=== PATIENT | male | born 1955 | race Caucasian/White ===

== ENCOUNTER 2017-09-19 17:47 | Inpatient (IN) | payer MEDICAID ==
[~2017-09-19] VITALS: Ht 175.3 cm; Wt 100.0 kg
[2017-09-19] VITALS (10 sets, daily range): BP systolic 133–156; BP diastolic 76–87; PULSE 74–96; RESP 17–20; TEMP 97.8–98; O2SAT 95–100
[2017-09-19] MEDS ORDERED: IOHEXOL 350 MG/ML 10 ML VIAL (for RAD DIAG) IVCONTRAST ONE (17:48)
[2017-09-19 18:14] LABS: AUTOMATED NEUTROPHIL # 3.5 TH/MM3 (1.8-7.7); BASOPHIL # 0.1 TH/MM3 (0-0.2); EOSINOPHIL # 0.3 TH/MM3 (0-0.4); EOSINOPHIL % 2.7 % (0.0-4.0); HEMATOCRIT 47.3 % (39.0-51.0); HEMOGLOBIN 17.1 GM/DL (13.0-17.0); LYMPH % 51.8 % (9.0-44.0); LYMPHOCYTE # 5.1 TH/MM3 (1.0-4.8); MEAN CELL VOLUME 95.8 FL (80.0-100.0); MEAN CORPUSCULAR HEMOGLOBIN 34.5 PG (27.0-34.0); MEAN PLATELET VOLUME 8.1 FL (7.0-11.0); MONO % 9.6 % (0.0-8.0); NEUT % 34.9 % (16.0-70.0); PLATELET COUNT 141 TH/MM3 (150-450); RED BLOOD COUNT 4.94 MIL/MM3 (4.50-5.90); RED CELL DISTRIBUTION WIDTH 13.5 % (11.6-17.2); WHITE BLOOD COUNT 9.9 TH/MM3 (4.0-11.0)
[2017-09-19] MEDS ORDERED: CEFAZOLIN INJ 2,000 MG in SODIUM CHLORIDE 0.9% INJ 100 ML IV ONE (18:15)
[2017-09-19] MEDS ORDERED: ONDANSETRON HCL 4 MG/2 ML VIAL IV PUSH ONE (18:15)
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
[2017-09-19 18:18] LABS: INTERNATIONAL NORMALIZED RATIO 1.1 RATIO; PROTHROMBIN TIME - PATIENT 10.7 SEC (9.8-11.6)
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
[2017-09-19] MEDS ORDERED: SODIUM CHLOR 0.9% 1000 ML INJ 1,000 ML IV ONE (18:30)
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
[2017-09-19] MEDS ORDERED: ceFAZolin 2 GM PREMIX 50 ML ONE (18:46)
[2017-09-19] MEDS ORDERED: DIPHTH/TETANUS/ACEL PERTUSSIS (BOOSTER) 0.5 ML VIAL/PFS IM ONE ×2 (18:46→18:55)
[2017-09-19] MEDS ORDERED: MORPHINE SULFATE 4 MG/ML INJ IV PUSH ONE (19:45)
[2017-09-19] MEDS ORDERED: Post-op Orders (for Pharmacy) XX ONE (20:00)
[2017-09-19] MEDS ORDERED: SODIUM CHLORIDE 0.9% FLUSH 10 ML FLUSH IV FLUSH PRN (20:00)
[2017-09-19] MEDS ORDERED: ONDANSETRON HCL 4 MG/2 ML VIAL IV PUSH PRN (20:00)
[2017-09-19] MEDS ORDERED: NALOXONE HCL 0.4 MG/ML AMP IV PUSH PRN (20:00)
[2017-09-19] MEDS ORDERED: MORPHINE SULFATE 2 MG/ML SYRINGE IV PUSH PRN (20:00)
[2017-09-19] MEDS: SODIUM CHLORIDE 0.9% FLUSH 10 ML FLUSH IV FLUSH SCH (20:15)
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
[2017-09-19] MEDS ORDERED: LIDOCAINE HCL 1% 30 ML VIAL INFIL ONE (20:45)
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
[2017-09-19] MEDS ORDERED: LIDOCAINE HCL 2% 50 ML VIAL ONE (21:06)
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
[2017-09-19] MEDS ORDERED: METOPROLOL TARTRATE 25 MG TAB PO PRN (23:30)
[2017-09-19] MEDS ORDERED: SODIUM CHLORID 0.9% 500 ML IV PRN (23:30)
[2017-09-19] MEDS ORDERED: LACTATED RINGER'S 1000 ML IV PRN (23:30)
[2017-09-19] MEDS ORDERED: POVIDONE IODINE 5% (ANTISEPSIS KIT) 4 APPLICATIONS EACH NARE PRN (23:30)
[2017-09-19] MEDS ORDERED: CHLORHEXIDINE GLUCONATE 2 % 1 PACK (2 CLOTHS) TOPICAL PRN (23:30)
[2017-09-19] MEDS: FAMOTIDINE 20 MG TAB PO SCH (23:46)
[2017-09-19] MEDS: METHOCARBAMOL 500 MG TAB PO SCH (23:46)
[2017-09-19] MEDS: ACETAMINOPHEN/HYDROcodone 325 MG/5 MG TAB PO PRN (23:47)
[2017-09-19] MEDS: SODIUM CHLOR 0.9% 1000 ML INJ 1,000 ML IV SCH ×2 (23:47→23:52)
[2017-09-20] VITALS (7 sets, daily range): BP systolic 152–171; BP diastolic 85–96; PULSE 62–78; RESP 16–18; TEMP 98.1–98.6; O2SAT 92–93
[2017-09-20] MEDS: METHOCARBAMOL 500 MG TAB PO SCH ×3 (05:04→20:09)
[2017-09-20] MEDS: ACETAMINOPHEN/HYDROcodone 325 MG/5 MG TAB PO PRN (05:04)
[2017-09-20 06:37] LABS: AUTOMATED NEUTROPHIL # 6.5 TH/MM3 (1.8-7.7); BASOPHIL # 0.1 TH/MM3 (0-0.2); BASOPHIL % 0.8 % (0.0-2.0); EOSINOPHIL # 0.1 TH/MM3 (0-0.4); EOSINOPHIL % 0.6 % (0.0-4.0); HEMATOCRIT 43.3 % (39.0-51.0); HEMOGLOBIN 15.3 GM/DL (13.0-17.0); LYMPH % 16.3 % (9.0-44.0); LYMPHOCYTE # 1.5 TH/MM3 (1.0-4.8); MEAN CELL VOLUME 95.5 FL (80.0-100.0); MEAN CORPUSCULAR HEMOGLOBIN 33.7 PG (27.0-34.0); MEAN CORPUSCULAR HGB CONC 35.3 % (32.0-36.0); MEAN PLATELET VOLUME 8.7 FL (7.0-11.0); MONO % 10.6 % (0.0-8.0); NEUT % 71.7 % (16.0-70.0); PLATELET COUNT 114 TH/MM3 (150-450); RED BLOOD COUNT 4.54 MIL/MM3 (4.50-5.90); RED CELL DISTRIBUTION WIDTH 13.5 % (11.6-17.2); WHITE BLOOD COUNT 9.1 TH/MM3 (4.0-11.0)
[2017-09-20] MEDS ORDERED: HALOPERIDOL LACTATE 5 MG/ML AMP IV PUSH PRN (06:45)
[2017-09-20] MEDS ORDERED: LACTULOSE SYRUP 20 GM/30 ML CUP PO PRN (06:45)
[2017-09-20] MEDS: ACETAMINOPHEN 1000 MG/100 ML 100 ML IV SCH ×3 (06:55→18:30)
[2017-09-20 07:01] LABS: BICARBONATE 21.2 MEQ/L (21.0-32.0); CALCIUM 7.7 MG/DL (8.5-10.1); CREATININE 0.63 MG/DL (0.60-1.30)
[2017-09-20] MEDS: RESP: ALBUTEROL 2.5 MG/IPRATROPIUM 0.5 MG NEB (SCH) NEB ×4 (08:55→21:26)
[2017-09-20] MEDS: POLYETHYLENE GLYCOL 17 GM PKG PO SCH (09:00)
[2017-09-20] MEDS: MULTIVITAMIN INJ 10 ML, THIAMINE INJ 100 MG, FOLIC ACID INJ 1 MG in SODIUM CHLORID 0.9%... IV SCH (10:16)
[2017-09-20] MEDS: SODIUM CHLORIDE 0.9% FLUSH 10 ML FLUSH IV FLUSH SCH ×2 (10:16→20:09)
[2017-09-20] MEDS: DOCUSATE SODIUM 50 MG/SENNA 8.6 MG TAB PO SCH ×2 (10:17→20:09)
[2017-09-20] MEDS: FAMOTIDINE 20 MG TAB PO SCH ×2 (10:17→20:09)
[2017-09-20] MEDS: LIDOCAINE HCL 5% PATCH T-DERMAL SCH (10:19)
--- NOTE | 2017-09-20 12:18 | EKG ---
Date Performed: 09/20/2017 Time Performed: 06:06:35 PTAGE: 89 years EKG: Sinus rhythm NORMAL ECG NO PREVIOUS TRACING DOCTOR: Good Manning Interpretating Date/Time 09/20/2017 12:14:57
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
[2017-09-20] MEDS: MORPHINE SULFATE 4 MG/ML INJ IV PUSH PRN ×2 (17:03→21:36)
[2017-09-21] VITALS (10 sets, daily range): BP systolic 141–174; BP diastolic 82–95; PULSE 64–86; RESP 16–19; TEMP 97.9–98.7; O2SAT 91–93
[2017-09-21] MEDS: ACETAMINOPHEN 1000 MG/100 ML 100 ML IV SCH (00:14)
[2017-09-21] MEDS: MORPHINE SULFATE 4 MG/ML INJ IV PUSH PRN ×2 (03:13→14:27)
[2017-09-21] MEDS: METHOCARBAMOL 500 MG TAB PO SCH (05:22)
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
[2017-09-21] MEDS: POLYETHYLENE GLYCOL 17 GM PKG PO SCH (09:00)
[2017-09-21] MEDS: RESP: ALBUTEROL 2.5 MG/IPRATROPIUM 0.5 MG NEB (SCH) NEB ×4 (09:06→20:07)
[2017-09-21] MEDS: LIDOCAINE HCL 5% PATCH T-DERMAL SCH (10:46)
[2017-09-21] MEDS: DOCUSATE SODIUM 50 MG/SENNA 8.6 MG TAB PO SCH ×2 (10:46→20:45)
[2017-09-21] MEDS: MULTIVITAMIN INJ 10 ML, THIAMINE INJ 100 MG, FOLIC ACID INJ 1 MG in SODIUM CHLORID 0.9%... IV SCH (10:46)
[2017-09-21] MEDS: TIOTROPIUM BROMIDE 18 MCG INH INH SCH (10:46)
[2017-09-21] MEDS: FAMOTIDINE 20 MG TAB PO SCH ×2 (10:47→20:45)
[2017-09-21] MEDS: SODIUM CHLORIDE 0.9% FLUSH 10 ML FLUSH IV FLUSH SCH ×2 (10:47→20:45)
[2017-09-21] MEDS: IBUPROFEN 800 MG TAB PO SCH ×3 (11:53→23:33)
[2017-09-21] MEDS: DIAZEPAM 2 MG TAB PO SCH ×2 (11:53→20:45)
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
[2017-09-21] MEDS: ENOXAPARIN SODIUM 40 MG/0.4 ML SYRINGE SQ SCH (14:24)
[2017-09-21] MEDS: LISINOPRIL 20 MG TAB PO SCH ×2 (14:24→20:45)
--- NOTE | 2017-09-21 16:58 | PD.POD ---
Subjective Pain score: 6 Remarks Mouth, ribs and right foot hurts Past Med/Surg/Social History Social History Smoking Status: Current Every Day Smoker Objective Vital Signs Vital Signs Date Time Temp Pulse Resp B/P (MAP) Pulse Ox O2 Delivery O2 Flow Rate FiO2 09/21/17 15:56 98.3 82 18 161/93 (115) 93 09/21/17 12:00 92 09/21/17 11:52 98.7 73 18 167/89 (115) 93 09/21/17 09:30 92 09/21/17 08:00 98.4 73 19 174/95 (121) 91 09/21/17 04:00 98.2 64 16 145/90 (108) 92 09/21/17 00:00 98.7 74 16 141/88 (105) 92 09/20/17 21:29 93 21 09/20/17 20:00 98.6 67 16 169/85 (113) 93 09/20/17 17:10 18 09/20/17 17:03 18 Coded Allergies: No Known Allergies (Verified Allergy, Unknown, 09/19/17) Medications and IVs Administered Medications Medications (Trade) Dose Ordered Sig/Johnson Route PRN Reason Start Time Stop Time Status Last Admin Dose Admin Sodium Chloride (NS Flush) 2 ml BID IV FLUSH 09/19/17 21:00 09/21/17 10:47 Famotidine (Pepcid) 20 mg BID PO 09/19/17 21:00 09/21/17 10:47 Multivitamins 10 ml/Thiamine HCl 100 mg/Folic Acid 1 mg/Sodium Chloride 511.2 ml @ 125 mls/hr DAILY IV 09/20/17 09:00 09/22/17 13:06 09/21/17 10:46 Morphine Sulfate (Morphine Inj) 4 mg Q3H PRN IV PUSH Breakthrough pain 09/20/17 06:45 09/21/17 14:27 Oxycodone HCl (Roxicodone) 10 mg Q4H PRN PO Pain 6-10 09/20/17 06:45 09/21/17 10:47 Lidocaine HCl (Lidoderm 5% Patch.12 Hr) 1 patch DAILY T-DERMAL 09/20/17 09:00 09/21/17 10:46 Senna/Docusate Sodium (Wanda-Colace) 1 tab BID PO 09/20/17 09:00 09/21/17 10:46 Albuterol/ Ipratropium (Duoneb Neb) 1 ampule Q4HR WHILE AWAKE NEB NEB 09/20/17 08:00 09/21/17 12:45 Tiotropium [place]itt (Spiriva Inh) 18 mcg DAILY INH 09/20/17 11:30 09/21/17 10:46 Diazepam (Valium) 2 mg Q8H PO 09/21/17 12:00 09/21/17 11:53 Ibuprofen (Motrin) 800 mg Q6HR PO 09/21/17 12:00 09/24/17 11:59 09/21/17 11:53 Lisinopril (Prinivil) 20 mg Q12HR PO 09/21/17 14:00 09/21/17 14:24 Enoxaparin Sodium (Lovenox Inj) 40 mg Q24H SQ 09/21/17 16:00 09/21/17 14:24 Other Results Last 72 hours Impressions Chest X-Ray 09/21/17 0600 Signed Impressions: Service Date/Time: Thursday, September 21, 2017 05:19 - CONCLUSION: Mild volume loss on the right with contusion or atelectasis in the medial right base Wilner Finch MD Lower Extremity CT 09/20/17 0000 Signed Impressions: Service Date/Time: Wednesday, September 20, 2017 16:10 - CONCLUSION: 1. Multiple fractures involving the second and third cuneiforms, proximal second metatarsal and distal third and fourth metatarsals. 2. Soft tissue swelling 3. Intact forefoot and hindfoot alignment. Wagner Sullivan MD Pelvis X-Ray 09/19/171750 Signed Impressions: Service Date/Time: Tuesday, September 19, 2017 17:48 - CONCLUSION: 1. No acute bony abnormality identified on plain film. Elgin Allison MD Maxillofacial CT 09/19/171750 Signed Impressions: Service Date/Time: Tuesday, September 19, 2017 18:03 - CONCLUSION: Anterior wall right maxillary sinus fracture. Natalio Alvarez MD Head CT 09/19/171750 Signed Impressions: Service Date/Time: Tuesday, September 19, 2017 18:03 - CONCLUSION: 1. No acute intracranial abnormalities. Right maxillary sinus fracture. Elgin Allison MD Chest X-Ray 09/19/171750 Signed Impressions: Service Date/Time: Tuesday, September 19, 2017 17:48 - CONCLUSION: No acute disease. Natalio Alvarez MD Chest CT 09/19/171750 Signed Impressions: Service Date/Time: Tuesday, September 19, 2017 18:18 - CONCLUSION: 1. Right- sided rib fractures. 2. Destructive bone lesion involving the spine and measuring mass effect and narrowing of the spinal canal at the T8 level. There may also be a T7 right transverse process lesion. The leading consideration would be metastatic disease of unknown primary. 3. Findings suggest possible cirrhosis. Natalio Alvarez MD Cervical Spine CT 09/19/171750 Signed Impressions: Service Date/Time: Tuesday, September 19, 2017 18:03 - CONCLUSION: Degenerative changes are noted without evidence for acute fracture or listhesis. Natalio Alvarez MD Abdomen/Pelvis CT 09/19/171750 Signed Impressions: Service Date/Time: Tuesday, September 19, 2017 18:18 - CONCLUSION: 1. Several lower right rib fractures without pneumothorax or significant lung contusion. Negative for acute traumatic injury within the abdomen or pelvis. Elgin Allison MD Foot X-Ray 09/19/17 0000 Signed Impressions: Service Date/Time: Tuesday, September 19, 2017 20:10 - CONCLUSION: Multiple fractures are seen as above. Natalio Alvarez MD Physical Exam General appearance: comfortable Nutritional status: overweight Orientation: alert and oriented x3 Details Right lower extremity with moderate swelling no fracture blisters noted, foot is warm, pulses palpable, pain upon palpating Lisfranc midtarsal joint, patient is capable of moving digits and ankle. Sensation intact to light touch in the pressure. No gross deformity noted Assessment & Plan A/P Right second metatarsal base fracture, cuneiform fracture, Lisfranc fracture/ dislocation, metatarsal fractures 2 3 4. Plan is for stressing the Lisfranc joint under general anesthesia tomorrow with plans for fixating unstable fragments likely starting with the Lisfranc joint and possible second metatarsal. The patient has a long history of smoking reviewed the need for smoking cessation and increased risk of wound healing problems nonunion and infection. We'll attempt a minimally invasive percutaneous approach to stabilize fractures. Reviewed case with trauma team clearance obtained. A long discussion took place with the patient regarding risks and benefits. If the fractures are not fixated there were likely be instability and a general progression to a post traumatic instability within the Lisfranc joint and midfoot. Surgery planned for tomorrow patient ordered nothing by mouth after midnight and consent signed. Gerardo Castillo DPM Sep 21, 2017 16:58
[2017-09-21] MEDS ORDERED: CEFAZOLIN INJ 2,000 MG in SODIUM CHLORIDE 0.9% INJ 100 ML IV SCH (17:00)
[2017-09-21] MEDS ORDERED: LACTATED RINGER'S 1000 ML IV PRN (21:00)
[2017-09-21] MEDS ORDERED: SODIUM CHLORID 0.9% 500 ML IV PRN (21:00)
[2017-09-21] MEDS ORDERED: POVIDONE IODINE 5% (ANTISEPSIS KIT) 4 APPLICATIONS EACH NARE PRN (21:00)
[2017-09-21] MEDS ORDERED: CHLORHEXIDINE GLUCONATE 2 % 1 PACK (2 CLOTHS) TOPICAL PRN (21:00)
[2017-09-21] MEDS ORDERED: METOPROLOL TARTRATE 25 MG TAB PO PRN (21:00)
[2017-09-22] VITALS (8 sets, daily range): BP systolic 136–170; BP diastolic 83–96; PULSE 85–97; RESP 16–18; TEMP 97.9–98.6; O2SAT 92–95
[2017-09-22 03:16] LABS: AUTOMATED NEUTROPHIL # 5.5 TH/MM3 (1.8-7.7); BASOPHIL % 0.5 % (0.0-2.0); EOSINOPHIL # 0.1 TH/MM3 (0-0.4); EOSINOPHIL % 1.8 % (0.0-4.0); HEMOGLOBIN 14.7 GM/DL (13.0-17.0); LYMPH % 15.9 % (9.0-44.0); LYMPHOCYTE # 1.2 TH/MM3 (1.0-4.8); MEAN CELL VOLUME 96.2 FL (80.0-100.0); MEAN CORPUSCULAR HEMOGLOBIN 33.8 PG (27.0-34.0); MEAN CORPUSCULAR HGB CONC 35.1 % (32.0-36.0); MEAN PLATELET VOLUME 8.3 FL (7.0-11.0); MONOCYTE # 0.5 TH/MM3 (0-0.9); NEUT % 74.8 % (16.0-70.0); PLATELET COUNT 83 TH/MM3 (150-450); RED BLOOD COUNT 4.36 MIL/MM3 (4.50-5.90); RED CELL DISTRIBUTION WIDTH 13.1 % (11.6-17.2); WHITE BLOOD COUNT 7.4 TH/MM3 (4.0-11.0)
[2017-09-22 03:28] LABS: BICARBONATE 26.8 MEQ/L (21.0-32.0); CALCIUM 8.1 MG/DL (8.5-10.1); CREATININE 0.69 MG/DL (0.60-1.30)
[2017-09-22] MEDS: DIAZEPAM 2 MG TAB PO SCH ×3 (05:26→20:35)
[2017-09-22] MEDS: IBUPROFEN 800 MG TAB PO SCH ×4 (05:26→23:05)
[2017-09-22] MEDS: LIDOCAINE HCL 5% PATCH T-DERMAL SCH (07:55)
[2017-09-22] MEDS: LISINOPRIL 20 MG TAB PO SCH ×2 (07:55→20:35)
[2017-09-22] MEDS: POLYETHYLENE GLYCOL 17 GM PKG PO SCH (07:56)
[2017-09-22] MEDS: MULTIVITAMIN INJ 10 ML, THIAMINE INJ 100 MG, FOLIC ACID INJ 1 MG in SODIUM CHLORID 0.9%... IV SCH (07:56)
[2017-09-22] MEDS: SODIUM CHLORIDE 0.9% FLUSH 10 ML FLUSH IV FLUSH SCH ×2 (07:56→20:34)
[2017-09-22] MEDS: FAMOTIDINE 20 MG TAB PO SCH ×2 (07:57→20:35)
[2017-09-22] MEDS: TIOTROPIUM BROMIDE 18 MCG INH INH SCH (08:01)
[2017-09-22] MEDS: DOCUSATE SODIUM 50 MG/SENNA 8.6 MG TAB PO SCH ×2 (08:07→20:35)
[2017-09-22] MEDS: RESP: ALBUTEROL 2.5 MG/IPRATROPIUM 0.5 MG NEB (SCH) NEB ×4 (08:29→19:53)
[2017-09-22] MEDS ORDERED: BUPIVACAINE HCL PF 0.5% 30 ML VIAL ONE ×2 (11:43→13:37)
[2017-09-22] MEDS ORDERED: PHENYLEPH/NS 1000 MCG/10 ML SYR IV ONE (12:00)
[2017-09-22] MEDS ORDERED: ceFAZolin INJ 1,000 MG VIAL IV ONE ×2 (12:00→16:22)
[2017-09-22] MEDS ORDERED: DEXAMETHASONE SOD PHOS 4 MG/ML VIAL IV ONE (12:00)
[2017-09-22] MEDS ORDERED: PROPOFOL 200 MG/20 ML AMP IV ONE (12:00)
[2017-09-22] MEDS ORDERED: ePHEDrine/NS 25 MG/5 ML SYRINGE IV ONE (12:00)
[2017-09-22] MEDS ORDERED: LIDOCAINE HCL 1% PF 5 ML SYRINGE OTHER ONE (12:00)
[2017-09-22] MEDS ORDERED: ONDANSETRON HCL 4 MG/2 ML VIAL IV ONE (12:00)
[2017-09-22] MEDS ORDERED: GADODIAMIDE PF 287 MG/ML 20 ML VIAL (for RAD MRI) IVCONTRAST ONE (12:32)
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
[2017-09-22] MEDS ORDERED: ACETAMINOPHEN 1000 MG/100 ML 100 ML IV ONE (13:36)
[2017-09-22] MEDS ORDERED: ceFAZolin INJ 1,000 MG VIAL ONE (13:36)
[2017-09-22] MEDS ORDERED: GENTAMICIN SULFATE 80 MG/2 ML VIAL ONE (13:37)
[2017-09-22] MEDS ORDERED: DO NOT ADM ANY ANTICOAGULANT DRUGS PRN (16:40)
--- NOTE | 2017-09-22 16:46 | HHI.PR ---
Immediate Post Op Note Procedure Date: Sep 22, 2017 Pre Op Diagnosis: Left Lisfranc fracture dislocation. Third metatarsal fracture. Midfoot fracture dislocation. Post Op Diagnosis: Same Surgeon: Gerardo Mckeon Machine Sole Leveler(s): scrub Procedure: Open reduction internal fixation third metatarsal. Open reduction internal fixation Lisfranc joint. Additional Information: Please see complete dictation Complications: None Specimen(s) removed: None Estimated blood loss: Less than 75 mL's Anesthesia: General, Local Drains: None Tourniquet time (min at mmHg) Approximate 75 minutes Patient to: Other Patient Condition: Good Implant/Devices: SEE IMPLANT LOG (if applicable) Date/Time of Procedure: SEE SURGICAL CARE RECORD Gerardo Mckeon DPM Sep 22, 2017 16:46
[2017-09-22] MEDS ORDERED: MIDAZOLAM HCL 2 MG/2 ML VIAL ONE (16:47)
[2017-09-22] MEDS ORDERED: *RESP: ALBUTEROL 2.5 MG/3 ML NEB (PRN) PERIprocedural Use ONLY NEB ONE (16:51)
--- NOTE | 2017-09-22 17:03 | RADRPT ---
EXAM DATE/TIME: 09/22/2017 14:45 [facility] COMPARISON: No previous studies available for comparison. INDICATIONS : ORIF right foot. MEDICAL HISTORY : Hypertension. Carcinoma renal. Hernia repair. SURGICAL HISTORY : Rt ankle surgery. Partial rt nephrectomy. ENCOUNTER: Subsequent ACUITY: 1 day PAIN SCORE: Non-responsive. LOCATION: Right foot. FINDINGS: And screw placement from the medial cuneiform to the base of the second metatarsal. There is any pain of the third metatarsal. There are pins across the third and fourth tarsometatarsal joints. CONCLUSION: Screw and pin fixation of Lisfranc joint and the third metatarsal. Near-anatomic alignment. No acute complication demonstrated. Wilner Conner MD on September 22, 2017 at 17:00 Board Certified Radiologist. This report was verified electronically.
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
[2017-09-23] VITALS (8 sets, daily range): BP systolic 134–160; BP diastolic 72–90; PULSE 67–109; RESP 17–18; TEMP 98.2–99.3; O2SAT 92–97
[2017-09-23 04:15] LABS: AUTOMATED NEUTROPHIL # 7.1 TH/MM3 (1.8-7.7); BASOPHIL % 0.1 % (0.0-2.0); HEMATOCRIT 40.2 % (39.0-51.0); LYMPH % 7.7 % (9.0-44.0); LYMPHOCYTE # 0.7 TH/MM3 (1.0-4.8); MEAN CELL VOLUME 96.9 FL (80.0-100.0); MEAN CORPUSCULAR HEMOGLOBIN 33.7 PG (27.0-34.0); MEAN CORPUSCULAR HGB CONC 34.8 % (32.0-36.0); MEAN PLATELET VOLUME 8.7 FL (7.0-11.0); MONO % 8.2 % (0.0-8.0); MONOCYTE # 0.7 TH/MM3 (0-0.9); PLATELET COUNT 90 TH/MM3 (150-450); RED BLOOD COUNT 4.14 MIL/MM3 (4.50-5.90); RED CELL DISTRIBUTION WIDTH 13.1 % (11.6-17.2); WHITE BLOOD COUNT 8.5 TH/MM3 (4.0-11.0)
[2017-09-23 04:34] LABS: BICARBONATE 26.7 MEQ/L (21.0-32.0); CREATININE 0.67 MG/DL (0.60-1.30)
[2017-09-23] MEDS: DIAZEPAM 2 MG TAB PO SCH ×3 (04:41→22:21)
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
[2017-09-23] MEDS: RESP: ALBUTEROL 2.5 MG/IPRATROPIUM 0.5 MG NEB (SCH) NEB ×4 (08:42→19:33)
[2017-09-23] MEDS: FAMOTIDINE 20 MG TAB PO SCH ×2 (09:00→22:22)
[2017-09-23] MEDS: SODIUM CHLORIDE 0.9% FLUSH 10 ML FLUSH IV FLUSH SCH ×2 (09:00→21:00)
[2017-09-23] MEDS: LISINOPRIL 20 MG TAB PO SCH ×2 (09:00→22:21)
[2017-09-23] MEDS: POLYETHYLENE GLYCOL 17 GM PKG PO SCH (09:00)
[2017-09-23] MEDS: DOCUSATE SODIUM 50 MG/SENNA 8.6 MG TAB PO SCH ×2 (09:00→22:22)
[2017-09-23] MEDS: TIOTROPIUM BROMIDE 18 MCG INH INH SCH (09:00)
--- NOTE | 2017-09-23 09:21 | PD.POD ---
Subjective Pain score: 3 Remarks Minimal right foot pain, no events overnight, going for biopsy today Past Med/Surg/Social History Social History Smoking Status: Current Every Day Smoker Objective Vital Signs Vital Signs Date Time Temp Pulse Resp B/P (MAP) Pulse Ox O2 Delivery O2 Flow Rate FiO2 09/23/17 08:00 98.6 67 17 158/86 (110) 96 09/23/17 04:45 98.2 72 18 160/89 (112) 96 09/22/17 23:31 98.6 89 18 161/96 (117) 94 09/22/17 19:53 95 21 09/22/17 19:34 97.9 97 18 154/93 (113) 94 09/22/17 18:00 98.0 85 18 163/83 (109) 94 09/22/17 17:15 91 14 151/77 (101) 94 Nasal Cannula 2 09/22/17 17:00 86 18 160/78 (105) 98 Nasal Cannula 2 09/22/17 16:45 91 20 143/84 (103) 96 Nasal Cannula 2 09/22/17 16:38 98.8 93 20 133/78 (96) 96 Nasal Cannula 2 09/22/17 10:45 97.9 85 16 170/96 (120) 94 Coded Allergies: No Known Allergies (Verified Allergy, Unknown, 09/19/17) Medications and IVs Administered Medications Medications (Trade) Dose Ordered Sig/Johnson Route PRN Reason Start Time Stop Time Status Last Admin Dose Admin Sodium Chloride (NS Flush) 2 ml BID IV FLUSH 09/19/17 21:00 09/22/17 20:34 Famotidine (Pepcid) 20 mg BID PO 09/19/17 21:00 09/22/17 20:35 Morphine Sulfate (Morphine Inj) 4 mg Q3H PRN IV PUSH Breakthrough pain 09/20/17 06:45 09/21/17 14:27 Oxycodone HCl (Roxicodone) 10 mg Q4H PRN PO Pain 6-10 09/20/17 06:45 09/23/17 06:00 Lidocaine HCl (Lidoderm 5% Patch.12 Hr) 1 patch DAILY T-DERMAL 09/20/17 09:00 09/22/17 07:55 Senna/Docusate Sodium (Wanda-Colace) 1 tab BID PO 09/20/17 09:00 09/21/17 20:45 Albuterol/ Ipratropium (Duoneb Neb) 1 ampule Q4HR WHILE AWAKE NEB NEB 09/20/17 08:00 09/23/17 08:42 Tiotropium [place] (Spiriva Inh) 18 mcg DAILY INH 09/20/17 11:30 09/22/17 08:01 Diazepam (Valium) 2 mg Q8H PO 09/21/17 12:00 09/23/17 04:41 Ibuprofen (Motrin) 800 mg Q6HR PO 09/21/17 12:00 09/24/17 11:59 Future Hold 09/22/17 23:05 Lisinopril (Prinivil) 20 mg Q12HR PO 09/21/17 14:00 09/22/17 20:35 Enoxaparin Sodium (Lovenox Inj) 40 mg Q24H SQ 09/21/17 16:00 Future hold 09/21/17 14:24 Other Results Last 72 hours Impressions Chest X-Ray 09/23/17 0600 Signed Impressions: Service Date/Time: Saturday, September 23, 2017 06:04 - CONCLUSION: Slight worsening in aeration Wilner Finch MD Thoracic Spine MRI 09/22/17 0000 Signed Impressions: Service Date/Time: Friday, September 22, 2017 12:03 - CONCLUSION: 1. 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 Associated right foraminal stenosis at T8/T9. 2. No acute fracture or subluxation demonstrated of the thoracic spine. 3. Bilateral pleural effusions have developed since the prior CT, etiology uncertain. Wilner Conner MD Foot X-Ray 09/22/17 0000 Signed Impressions: Service Date/Time: Friday, September 22, 2017 14:45 - CONCLUSION: Screw and pin fixation of Lisfranc joint and the third metatarsal. Near-anatomic alignment. No acute complication demonstrated. Wilner Conner MD Chest X-Ray 09/21/17 0600 Signed Impressions: Service Date/Time: Thursday, September 21, 2017 05:19 - CONCLUSION: Mild volume loss on the right with contusion or atelectasis in the medial right base Wilner Finch MD Physical Exam Remarks Verbal appropriate mild pain with coughing Right lower extremity is examined splint intact patient able to move toes, toes appear warm, no strikethrough on bandage. Calf nonpainful bilateral left lower extremity with no issues Assessment & Plan A/P 1. Right Lisfranc fracture dislocation. 2. Displaced third metatarsal. 3. Mid foot fracture dislocation second and third cuneiforms. 4. Fourth metatarsal fracture. Postop day 1 1. Open reduction and internal fixation Lisfranc joint. 2. Open reduction and internal fixation third metatarsal. 3. Open reduction and internal fixation cuneiform 2 and 3 with K-wire fixation. 4. Closed reduction fourth metatarsal. Right lower extremity is doing well, anticipate bandage changed before discharge. Continue physical therapy nonweightbearing right foot. Okay to resume Lovenox once cleared per neuro and trauma team. Gerardo Castillo DPM Sep 23, 2017 09:20
[2017-09-23] MEDS: LIDOCAINE HCL 5% PATCH T-DERMAL SCH (10:53)
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
[2017-09-23] MEDS ORDERED: fentaNYL CITRATE 250 MCG/5 ML AMP ONE (13:55)
[2017-09-23] MEDS ORDERED: MIDAZOLAM HCL 5 MG/5 ML VIAL ONE (13:55)
[2017-09-23] MEDS ORDERED: LIDOCAINE 1%/EPINEPHrine 1:100,000 SOLN 50 ML VIAL ONE (14:07)
[2017-09-23] MEDS ORDERED: THROMBIN (TOPICAL) 5,000 UNIT VIAL ONE (14:49)
--- NOTE | 2017-09-23 15:05 | PD.RAD ---
Post CT Procedure Prog Note Pre Procedure Diagnosis: (1) Mass of thoracic vertebra Post Procedure Diagnosis: (1) Mass of thoracic vertebra Procedure Date: Sep 23, 2017 Supervising Radiologist: Yousif Crawford Anesthesia: Local, Analgesia, Conscious Sedation Plan of Activity Patient to Unit: ROPU Patient Condition: Good See PACS Report for procedural detail/treatment Biopsy Imaging Guidance: CT Side: Right Biopsy Procedure: Spine (T8) Specimen: Core Biopsy (18 gauge) Yousif Crawford MD Sep 23, 2017 15:05
[2017-09-23] MEDS ORDERED: LIDOCAINE 1%/EPINEPHrine 1:100,000 SOLN 30 ML VIAL OTHER ONE (15:31)
--- NOTE | 2017-09-23 15:39 | HHI.NSPN ---
(Jh Juárez) History Chief Complaint: Right foot pain (Jh Juárez) Interval History 09/22: The patient was evaluated by Neurosurgery for the finding of a thoracic spine lesion upon trauma evaluation on . The patient had an MRI of the thoracic spine completed in the afternoon which demonstrated multifocal metastatic disease of the spine. There is also associated right foraminal stenosis at T8-9. There are no acute fractures or subluxation. An incidental finding of bilateral pleural effusions was noted to have developed since his CT chest on . 09/23: The patient had a right T8 core biopsy by Interventional Radiology completed this afternoon prior to being seen. He was seen upon his return to his room on a med/surg floor. He is awake and alert. He is sitting up on the stretcher even though he is suppose to be laying flat after the biopsy. He complains of difficulty breathing when laying flat due to his rib fractures. He also has pain to the right foot due to fractures. He denies any headache or dizziness. He has no pain, except for the right foot, numbness, tingling or weakness to the extremities. When evaluated there are no sensorimotor deficits noted. The patient's bed is placed in reverse Trendelenburg and he is able to breathe without any difficulty. (Jh Juárez) Exam Results 09/21/17 09/21/17 09/22/17 09/22/17 09/23/17 09/23/17 06:00 18:00 06:00 18:00 06:00 18:00 Intake Total 1420 ml 400 ml 0 ml 900 ml 840 ml Output Total 750 ml 600 ml 82 ml Balance 670 ml -200 ml 0 ml 818 ml 840 ml Intake Oral 1320 ml 400 ml 0 ml 0 ml 840 ml IV Total 100 ml 900 ml Output Urine Total 750 ml 600 ml 4 ml Stool Total 3 ml Estimated Blood Loss 75 ml # Voids 4 3 5 # Bowel Movements 0 1 0 Vital Signs Date Time Temp Pulse Resp B/P (MAP) Pulse Ox O2 Delivery O2 Flow Rate FiO2 09/23/17 15:01 98.3 90 18 137/80 (99) 92 09/23/17 11:52 20 09/23/17 11:48 98.2 72 17 149/90 (109) 97 09/23/17 08:00 98.6 67 17 158/86 (110) 96 09/23/17 04:45 98.2 72 18 160/89 (112) 96 09/22/17 23:31 98.6 89 18 161/96 (117) 94 09/22/17 19:53 95 21 09/22/17 19:34 97.9 97 18 154/93 (113) 94 09/22/17 18:00 98.0 85 18 163/83 (109) 94 09/22/17 17:15 91 14 151/77 (101) 94 Nasal Cannula 2 09/22/17 17:00 86 18 160/78 (105) 98 Nasal Cannula 2 09/22/17 16:45 91 20 143/84 (103) 96 Nasal Cannula 2 09/22/17 16:38 98.8 93 20 133/78 (96) 96 Nasal Cannula 2 09/22/17 10:45 97.9 85 16 170/96 (120) 94 09/22/17 08:29 92 21 09/22/17 07:48 98.1 91 17 152/96 (114) 93 09/22/17 05:20 98.2 89 18 136/89 (105) 93 09/21/17 23:34 98.1 86 18 147/82 (103) 93 09/21/17 20:15 93 09/21/17 19:40 97.9 81 18 162/89 (113) 93 09/21/17 15:56 98.3 82 18 161/93 (115) 93 09/21/17 12:00 92 09/21/17 11:52 98.7 73 18 167/89 (115) 93 09/21/17 09:30 92 09/21/17 08:00 98.4 73 19 174/95 (121) 91 09/21/17 04:00 98.2 64 16 145/90 (108) 92 09/21/17 00:00 98.7 74 16 141/88 (105) 92 09/20/17 21:29 93 21 09/20/17 20:00 98.6 67 16 169/85 (113) 93 09/20/17 17:10 18 09/20/17 16:00 98.1 78 16 170/89 (116) 92 (Jh Juárez) Physical Examination GENERAL: Awake & alert, sitting up on the stretcher. Affect normal. Readily interacts. No apparent distress. SKIN: Warm & dry. Abrasions noted. Midline thoracic spine biopsy insertion site w/dry & intact dressing. HEENT: Normocephalic, atraumatic. MUSCULOSKELETAL: GILBERT spontaneously & purposefully w/o difficulty. Extremities NTTP but unable to assess right foot or ankle due to splint. Thoracolumbar spine NTTP. NEUROLOGICAL: AAOx3. Speech clear & appropriate. Follows commands w/o difficulty. The right foot and ankle are not able to be assess due to the presence of a splint. He is able to wiggle the toes and says they feel numb to touch. Sensation intact to light touch to the extremities except as noted above. Motor strength is 5/5 to all major flexion & extension muscle groups of the extremities, to include the wrist flexors & extensors and the hand intrinsics & extrinsics, except as noted above. (Jh Juárez) Lab, Micro, Other Results Recent Impressions Chest X-Ray 09/23/17 06 Signed Impressions: Service Date/Time: Saturday, September 23, 2017 06:04 - CONCLUSION: Slight worsening in aeration Wilner Finch MD Thoracic Spine MRI 09/22/17 0000 Signed Impressions: Service Date/Time: Friday, September 22, 2017 12:03 - CONCLUSION: 1. 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 Associated right foraminal stenosis at T8/T9. 2. No acute fracture or subluxation demonstrated of the thoracic spine. 3. Bilateral pleural effusions have developed since the prior CT, etiology uncertain. Wilner Conner MD Foot X-Ray 09/22/17 0000 Signed Impressions: Service Date/Time: Friday, September 22, 2017 14:45 - CONCLUSION: Screw and pin fixation of Lisfranc joint and the third metatarsal. Near-anatomic alignment. No acute complication demonstrated. Wilner Conner MD Chest X-Ray 09/21/17 0600 Signed Impressions: Service Date/Time: Thursday, September 21, 2017 05:19 - CONCLUSION: Mild volume loss on the right with contusion or atelectasis in the medial right base Wilner Finch MD Laboratory Tests Test 09/22/17 02:57 09/23/17 03:42 White Blood Count 7.4 TH/MM3 8.5 TH/MM3 Red Blood Count 4.36 MIL/MM3 4.14 MIL/MM3 Hemoglobin 14.7 GM/DL 14.0 GM/DL Hematocrit 42.0 % 40.2 % Mean Corpuscular Volume 96.2 FL 96.9 FL Mean Corpuscular Hemoglobin 33.8 PG 33.7 PG Mean Corpuscular Hemoglobin Concent 35.1 % 34.8 % Red Cell Distribution Width 13.1 % 13.1 % Platelet Count 83 TH/MM3 90 TH/MM3 Mean Platelet Volume 8.3 FL 8.7 FL Neutrophils (%) (Auto) 74.8 % 84.0 % Lymphocytes (%) (Auto) 15.9 % 7.7 % Monocytes (%) (Auto) 7.0 % 8.2 % Eosinophils (%) (Auto) 1.8 % 0.0 % Basophils (%) (Auto) 0.5 % 0.1 % Neutrophils # (Auto) 5.5 TH/MM3 7.1 TH/MM3 Lymphocytes # (Auto) 1.2 TH/MM3 0.7 TH/MM3 Monocytes # (Auto) 0.5 TH/MM3 0.7 TH/MM3 Eosinophils # (Auto) 0.1 TH/MM3 0.0 TH/MM3 Basophils # (Auto) 0.0 TH/MM3 0.0 TH/MM3 CBC Comment AUTO DIFF AUTO DIFF Differential Comment AUTO DIFF CONFIRMED AUTO DIFF CONFIRMED Platelet Estimate LOW LOW Platelet Morphology Comment NORMAL NORMAL Blood Urea Nitrogen 6 MG/DL 9 MG/DL Creatinine 0.69 MG/DL 0.67 MG/DL Random Glucose 111 MG/DL 117 MG/DL Calcium Level 8.1 MG/DL 8.0 MG/DL Sodium Level 136 MEQ/L 136 MEQ/L Potassium Level 3.8 MEQ/L 3.9 MEQ/L Chloride Level 102 MEQ/L 104 MEQ/L Carbon Dioxide Level 26.8 MEQ/L 26.7 MEQ/L Anion Gap 7 MEQ/L 5 MEQ/L Estimat Glomerular Filtration Rate 117 ML/MIN 121 ML/MIN (Jh Juárez) Medical Decision Making Impression and Plan Impression: T8 lesion c/w metastatic neoplasm Multifocal metastatic disease of the thoracic spine Right foraminal stenosis at T8-9 The patient is doing well. The only sensorimotor deficit noted is numbness to the right toes which are splinted secondary to fractures. SBP intermittently elevated. Reviewed labs for today. Improvement in thrombocytopenia. MRI thoracic spine demonstrated multifocal metastatic disease of the spine. There is also associated right foraminal stenosis at T8-9. There are no acute fractures or subluxation. An incidental finding of bilateral pleural effusions was noted to have developed since his CT chest on . Plan: Plan of care discussed with patient. Plan of care discussed with Trauma. Primary management per Trauma. Neuro checks. Medical Oncology consult. Radiation Oncology consult. (Jh Juárez) Attending Statement The exam, history, and the medical decision-making described in the above note were completed with the assistance of the mid-level provider. I reviewed and agree with the findings presented. I attest that I had a [id number] encounter with the patient on the same day, and personally performed and documented my assessment and findings in the medical record. Patient's examination today stable without significant lower extremity neurologic deficit. Ambulating Thoracic spine biopsy performed today-results pending (Robb Randhawa MD) Jh Juárez Sep 23, 2017 15:39 Robb Randhawa MD Sep 23, 2017 22:18
--- NOTE | 2017-09-23 17:19 | RADRPT ---
EXAM DATE/TIME: 09/23/2017 14:28 [facility] COMPARISON: No previous studies available for comparison. INDICATIONS : T-spine lesion t-8 SEDATION TIME: 30 minutes BIOPSY SITE: T-8 MEDICATION(S): 1.) 5 mg midazolam (Versed) IV 2.) 250 mcg fentanyl (Sublimaze) IV DEVICE(S): 1.) 18 gauge Bard joryon MEDICAL HISTORY : Hypertension. CA Renal SURGICAL HISTORY : Nephrectomy, right. Hernia repair orthopedic ENCOUNTER: Initial ACUITY: 1 day PAIN SCORE: 6/10 LOCATION: T-8 bone A total of one core specimen(s) were obtained and sent to the laboratory for pathologic evaluation. PROCEDURE: 1. CT guided T-8 biopsy. Prior to the procedure informed consent was obtained. Any appropriate prior imaging studies were rev iewed. Using automated exposure control and adjustment of the mA and/or kV according to patient size, radiat ion dose was kept as low as reasonably achievable to obtain optimal diagnostic quality images. DICOM format image data is available electronically for review and comparison. The site was prepped in a sterile fashion. Full sterile technique was used, including cap, mask, mingo rile gloves and gown and a large sterile sheet. Hand hygiene and 2% chlorhexidine and/or betadine/al cohol prep was utilized per protocol for cutaneous antisepsis. The skin and subcutaneous tissues wer e infiltrated with local anesthetic solution. With CT guidance the previously identified target was localized using a coaxial biopsy.. Biopsy was p erformed using the prescribed needle as above. Adequate hemostasis was obtained with a Gelfoam and t hrombin slurry as there was some bleeding from the carrier needle postbiopsy. Pressure dressing place d over the access site. Follow-up CT scan reveals no hemorrhage. The patient tolerated the procedure well and there were no complications. The patient was returned to the Radiology Outpatient Unit in stable condition. CONCLUSION: Uncomplicated CT guided biopsy. Yousif Crawford MD on September 23, 2017 at 17:15 Board Certified Radiologist. This report was verified electronically.
[2017-09-23] MEDS: ENOXAPARIN SODIUM 40 MG/0.4 ML SYRINGE SQ SCH (17:31)
[2017-09-24] MEDS: DIAZEPAM 2 MG TAB PO SCH ×3 (03:25→20:07)
[2017-09-24 04:00] VITALS: BP 162/95; PULSE 80; RESP 18; TEMP 99.7; O2SAT 95
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
[2017-09-24 08:00] VITALS: BP 155/87; PULSE 72; RESP 18; TEMP 98.6; O2SAT 96
[2017-09-24] MEDS: SODIUM CHLORIDE 0.9% FLUSH 10 ML FLUSH IV FLUSH SCH ×2 (08:54→20:07)
[2017-09-24] MEDS: FAMOTIDINE 20 MG TAB PO SCH ×2 (08:55→20:07)
[2017-09-24] MEDS: LISINOPRIL 20 MG TAB PO SCH ×2 (08:55→20:07)
[2017-09-24] MEDS: DOCUSATE SODIUM 50 MG/SENNA 8.6 MG TAB PO SCH ×2 (08:55→20:07)
[2017-09-24] MEDS: POLYETHYLENE GLYCOL 17 GM PKG PO SCH (08:55)
[2017-09-24] MEDS: LIDOCAINE HCL 5% PATCH T-DERMAL SCH (08:57)
[2017-09-24] MEDS: TIOTROPIUM BROMIDE 18 MCG INH INH SCH (08:59)
[2017-09-24 10:24] LABS: % SATURATION IRON PROFILE 14.7 % (20-50); IRON (FE) 29 MCG/DL (65-175); TOTAL IRON BINDING CAPACITY 197 MCG/DL (250-450)
[2017-09-24 10:49] LABS: FERRITIN 709 NG/ML (26-388); FOLATE 12.5 NG/ML (3.1-17.5)
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
[2017-09-24 12:00] VITALS: BP 165/88; PULSE 74; RESP 18; TEMP 99.9; O2SAT 95
--- NOTE | 2017-09-24 15:24 | RADRPT ---
EXAM DATE/TIME: 09/24/2017 14:31 [facility] COMPARISON: MRI THORACIC SPINE W & W/O CONTRAST, September 22, 2017, 12:03. PRIOR BONE SCANS: No correlative bone scan available for comparison. INDICATIONS : Metastatic bony disease. DOSE: 31.2 mCi Tc99m MDP IV MEDICAL HISTORY : Hypertension. Renal cancer. SURGICAL HISTORY : Umbilical hernia repair. Nephrectomy, right. Rib and right foot fracture. ENCOUNTER: Initial ACUITY: 4 - 6 days PAIN SCALE: 3/10 LOCATION: Back. TECHNIQUE: Three hours post intravenous administration of radiotracer, whole body bone scan imaging was performe d. FINDINGS: Blood pool images demonstrate a homogeneous pattern of uptake in the soft tissues. No hyperemic area s are identified. Planar bone scan demonstrates a normal pattern of uptake. There is mild bilateral uptake in the knees characteristic of degenerative changes and in the right midfoot. There is mildl y increased uptake in the costovertebral junction region on the right side from T7-T9 which correlate s to the levels of the destructive posterior element mass. CONCLUSION: 1. There are some surrounding degenerative changes in the costovertebral junctions of the mid thorac ic spine on the right side at the level surrounding the destructive mass. 2. Degenerative changes in the knees and right midfoot. 3. No focal areas of increased uptake on the whole body scan to suggest bony metastatic disease; ple ase note, however, that renal cell carcinoma tends to be not osteoblastic. Maikel Krause MD on September 24, 2017 at 15:18 Board Certified Radiologist. This report was verified electronically.
[2017-09-24 16:00] VITALS: BP 126/59; PULSE 85; RESP 20; TEMP 98.5; O2SAT 96
[2017-09-24] MEDS: ENOXAPARIN SODIUM 40 MG/0.4 ML SYRINGE SQ SCH (16:59)
[2017-09-24 17:55] VITALS: O2SAT 96
[2017-09-24 20:25] VITALS: BP 143/78; PULSE 89; RESP 20; TEMP 98.5; O2SAT 95
[2017-09-25] VITALS: BP 135/87; PULSE 80; RESP 18; TEMP 99.1; O2SAT 95
[2017-09-25] MEDS: DIAZEPAM 2 MG TAB PO SCH ×3 (04:32→20:06)
[2017-09-25 07:30] VITALS: BP 133/80; PULSE 73; RESP 18; TEMP 98.8; O2SAT 94
[2017-09-25] MEDS: FAMOTIDINE 20 MG TAB PO SCH ×2 (08:52→20:07)
[2017-09-25] MEDS: POLYETHYLENE GLYCOL 17 GM PKG PO SCH (08:52)
[2017-09-25] MEDS: DOCUSATE SODIUM 50 MG/SENNA 8.6 MG TAB PO SCH ×2 (08:52→20:06)
[2017-09-25] MEDS: LIDOCAINE HCL 5% PATCH T-DERMAL SCH (08:53)
[2017-09-25] MEDS: LISINOPRIL 20 MG TAB PO SCH ×2 (08:54→20:06)
[2017-09-25] MEDS: SODIUM CHLORIDE 0.9% FLUSH 10 ML FLUSH IV FLUSH SCH ×2 (08:55→20:07)
[2017-09-25] MEDS: TIOTROPIUM BROMIDE 18 MCG INH INH SCH (08:55)
[2017-09-25 10:34] LABS: AUTOMATED NEUTROPHIL # 3.7 TH/MM3 (1.8-7.7); BASOPHIL % 0.5 % (0.0-2.0); EOSINOPHIL # 0.1 TH/MM3 (0-0.4); EOSINOPHIL % 1.6 % (0.0-4.0); HEMATOCRIT 40.4 % (39.0-51.0); HEMOGLOBIN 14.2 GM/DL (13.0-17.0); LYMPH % 18.4 % (9.0-44.0); LYMPHOCYTE # 1.1 TH/MM3 (1.0-4.8); MEAN CELL VOLUME 96.2 FL (80.0-100.0); MEAN CORPUSCULAR HEMOGLOBIN 33.7 PG (27.0-34.0); MEAN PLATELET VOLUME 8.2 FL (7.0-11.0); MONO % 15.9 % (0.0-8.0); MONOCYTE # 0.9 TH/MM3 (0-0.9); NEUT % 63.6 % (16.0-70.0); PLATELET COUNT 126 TH/MM3 (150-450); RED CELL DISTRIBUTION WIDTH 13.4 % (11.6-17.2); WHITE BLOOD COUNT 5.9 TH/MM3 (4.0-11.0)
[2017-09-25 11:00] LABS: ALBUMIN 2.6 GM/DL (3.4-5.0); ALKALINE PHOSPHATASE 73 U/L (45-117); ALT (GPT) 36 U/L (12-78); AST (GOT) 41 U/L (15-37); BICARBONATE 28.8 MEQ/L (21.0-32.0); BLOOD UREA NITROGEN 10 MG/DL (7-18); CALCIUM 8.4 MG/DL (8.5-10.1); CHLORIDE 96 MEQ/L (98-107); CREATININE 0.73 MG/DL (0.60-1.30); GLOMERULAR FILTRATION RATE 109 ML/MIN (>89); GLUCOSE,RANDOM 127 MG/DL (74-106); SODIUM (NA) 131 MEQ/L (136-145); TOTAL BILIRUBIN ADULT 1.4 MG/DL (0.2-1.0); TOTAL PROTEIN 6.6 GM/DL (6.4-8.2)
[2017-09-25 11:32] VITALS: BP 171/81; PULSE 89; RESP 18; TEMP 97.7; O2SAT 94
--- NOTE | 2017-09-25 12:34 | HHI.NSPN ---
History Chief Complaint: Right foot pain Interval History 09/22: The patient was evaluated by Neurosurgery for the finding of a thoracic spine lesion upon trauma evaluation on . The patient had an MRI of the thoracic spine completed in the afternoon which demonstrated multifocal metastatic disease of the spine. There is also associated right foraminal stenosis at T8-9. There are no acute fractures or subluxation. An incidental finding of bilateral pleural effusions was noted to have developed since his CT chest on . 09/23: The patient had a right T8 core biopsy by Interventional Radiology completed this afternoon prior to being seen. He was seen upon his return to his room on a med/surg floor. He is awake and alert. He is sitting up on the stretcher even though he is suppose to be laying flat after the biopsy. He complains of difficulty breathing when laying flat due to his rib fractures. He also has pain to the right foot due to fractures. He denies any headache or dizziness. He has no pain, except for the right foot, numbness, tingling or weakness to the extremities. When evaluated there are no sensorimotor deficits noted. The patient's bed is placed in reverse Trendelenburg and he is able to breathe without any difficulty. 09/25: When seen this afternoon the patient is awake & alert in bed watching TV. He has some pain to his right foot and to his thoracic back at the biopsy site. He also says the right toes are numb. He denies any headache or dizziness or any extremity numbness, tingling or pain except that related to his foot injury. There is no change in his sensorimotor exam. The patient did say he was to have radiation therapy for the thoracic spine lesion. Exam Results 09/23/17 09/23/17 09/24/17 09/24/17 09/25/17 09/25/17 06:00 18:00 06:00 18:00 06:00 18:00 Intake Total 840 ml 840 ml 480 ml Balance 840 ml 840 ml 480 ml Intake Oral 840 ml 840 ml 480 ml # Voids 7 1 5 2 # Bowel Movements 0 0 0 0 Vital Signs Date Time Temp Pulse Resp B/P (MAP) Pulse Ox O2 Delivery O2 Flow Rate FiO2 09/25/17 11:32 97.7 89 18 171/81 (111) 94 09/25/17 07:30 98.8 73 18 133/80 (97) 94 09/25/17 00:00 99.1 80 18 135/87 (103) 95 09/24/17 21:25 95 Room Air 09/24/17 20:25 98.5 89 20 143/78 (99) 95 09/24/17 17:58 18 09/24/17 17:55 96 21 09/24/17 16:00 98.5 85 20 126/59 (81) 96 09/24/17 12:00 99.9 74 18 165/88 (113) 95 09/24/17 08:55 96 Room Air 09/24/17 08:00 98.6 72 18 155/87 (109) 96 09/24/17 04:00 99.7 80 18 162/95 (117) 95 09/23/17 23:21 Room Air 09/23/17 23:05 99.3 96 18 151/84 (106) 96 09/23/17 20:00 98.8 109 18 160/90 (113) 97 09/23/17 16:24 97 21 09/23/17 15:16 85 17 134/72 (92) 97 09/23/17 15:01 98.3 90 18 137/80 (99) 92 09/23/17 11:48 98.2 72 17 149/90 (109) 97 09/23/17 08:00 98.6 67 17 158/86 (110) 96 09/23/17 04:45 98.2 72 18 160/89 (112) 96 09/22/17 23:31 98.6 89 18 161/96 (117) 94 09/22/17 19:53 95 21 09/22/17 19:34 97.9 97 18 154/93 (113) 94 09/22/17 18:00 98.0 85 18 163/83 (109) 94 09/22/17 17:15 91 14 151/77 (101) 94 Nasal Cannula 2 09/22/17 17:00 86 18 160/78 (105) 98 Nasal Cannula 2 09/22/17 16:45 91 20 143/84 (103) 96 Nasal Cannula 2 09/22/17 16:38 98.8 93 20 133/78 (96) 96 Nasal Cannula 2 Physical Examination GENERAL: Awake & alert sitting up in bed watching TV. Affect normal. Readily interacts. No apparent distress. SKIN: Warm & dry. Abrasions noted. Midline thoracic spine biopsy insertion site w/dry & intact dressing. HEENT: Normocephalic, atraumatic. MUSCULOSKELETAL: GILBERT spontaneously & purposefully w/o difficulty. Extremities NTTP but unable to assess right foot or ankle due to splint. Thoracolumbar spine TTP at the biopsy site o/w NTTP. NEUROLOGICAL: AAOx3. Speech clear & appropriate. Follows commands w/o difficulty. The right foot and ankle are not able to be assess due to the presence of a splint. He is able to wiggle the toes and says they feel numb to touch. Sensation intact to light touch to the extremities except as noted above. Motor strength is 5/5 to all major flexion & extension muscle groups of the extremities except as noted above. Lab, Micro, Other Results Recent Impressions Bone Scan Nuclear Medicine 09/24/17 0000 Signed Impressions: Service Date/Time: September 14:31 - CONCLUSION: 1. There are some surrounding degenerative changes in the costovertebral junctions of the mid thoracic spine on the right side at the level surrounding the destructive mass. 2. Degenerative changes in the knees and right midfoot. 3. No focal areas of increased uptake on the whole body scan to suggest bony metastatic disease; please note, however, that renal cell carcinoma tends to be not osteoblastic. Maikel Krause MD Chest X-Ray 09/23/17 0600 Signed Impressions: Service Date/Time: Saturday, September 23, 2017 06:04 - CONCLUSION: Slight worsening in aeration Wilner Finch MD Bone Biopsy CT 09/23/17 0000 Signed Impressions: Service Date/Time: Saturday, September 23, 2017 14:28 - CONCLUSION: Uncomplicated CT guided biopsy. Yousif Crawford MD Laboratory Tests Test 09/23/17 03:42 09/24/17 09:26 09/25/17 09:45 White Blood Count 8.5 TH/MM3 5.9 TH/MM3 Red Blood Count 4.14 MIL/MM3 4.20 MIL/MM3 Hemoglobin 14.0 GM/DL 14.2 GM/DL Hematocrit 40.2 % 40.4 % Mean Corpuscular Volume 96.9 FL 96.2 FL Mean Corpuscular Hemoglobin 33.7 PG 33.7 PG Mean Corpuscular Hemoglobin Concent 34.8 % 35.0 % Red Cell Distribution Width 13.1 % 13.4 % Platelet Count 90 TH/MM3 126 TH/MM3 Mean Platelet Volume 8.7 FL 8.2 FL Neutrophils (%) (Auto) 84.0 % 63.6 % Lymphocytes (%) (Auto) 7.7 % 18.4 % Monocytes (%) (Auto) 8.2 % 15.9 % Eosinophils (%) (Auto) 0.0 % 1.6 % Basophils (%) (Auto) 0.1 % 0.5 % Neutrophils # (Auto) 7.1 TH/MM3 3.7 TH/MM3 Lymphocytes # (Auto) 0.7 TH/MM3 1.1 TH/MM3 Monocytes # (Auto) 0.7 TH/MM3 0.9 TH/MM3 Eosinophils # (Auto) 0.0 TH/MM3 0.1 TH/MM3 Basophils # (Auto) 0.0 TH/MM3 0.0 TH/MM3 CBC Comment AUTO DIFF DIFF FINAL Differential Comment AUTO DIFF CONFIRMED Platelet Estimate LOW Platelet Morphology Comment NORMAL Blood Urea Nitrogen 9 MG/DL 10 MG/DL Creatinine 0.67 MG/DL 0.73 MG/DL Random Glucose 117 MG/DL 127 MG/DL Calcium Level 8.0 MG/DL 8.4 MG/DL Sodium Level 136 MEQ/L 131 MEQ/L Potassium Level 3.9 MEQ/L 3.7 MEQ/L Chloride Level 104 MEQ/L 96 MEQ/L Carbon Dioxide Level 26.7 MEQ/L 28.8 MEQ/L Anion Gap 5 MEQ/L 6 MEQ/L Estimat Glomerular Filtration Rate 121 ML/MIN 109 ML/MIN Blood Smear Pathologist Review Iron Level 29 MCG/DL Total Iron Binding Capacity 197 MCG/DL Percent Iron Saturation 14.7 % Ferritin 709 NG/ML Vitamin B12 Level 536 PG/ML Folate 12.5 NG/ML Total Protein 6.6 GM/DL Albumin 2.6 GM/DL Alkaline Phosphatase 73 U/L Aspartate Amino Transf (AST/SGOT) 41 U/L Alanine Aminotransferase (ALT/SGPT) 36 U/L Total Bilirubin 1.4 MG/DL Medical Decision Making Impression and Plan Impression: T8 lesion c/w metastatic neoplasm Multifocal metastatic disease of the thoracic spine Right foraminal stenosis at T8-9 The patient continue to do well. There are no sensorimotor deficits noted except for numbness to the right toes which are splinted secondary to fractures. SBP intermittently elevated. Reviewed labs for today. Improvement in thrombocytopenia. Sodium 131. AST elevated. MRI thoracic spine demonstrated multifocal metastatic disease of the spine. There is also associated right foraminal stenosis at T8-9. There are no acute fractures or subluxation. An incidental finding of bilateral pleural effusions was noted to have developed since his CT chest on . Plan: Plan of care discussed with patient. Plan of care discussed with Trauma. Primary management per Trauma. Neuro checks. Medical Oncology consult. Radiation Oncology consult. Will follow intermittently while hospitalised. Jh Juárez Sep 25, 2017 12:34
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
[2017-09-25] MEDS: ENOXAPARIN SODIUM 40 MG/0.4 ML SYRINGE SQ SCH (15:02)
[2017-09-25 16:00] VITALS: BP 148/78; PULSE 82; RESP 18; TEMP 97.3; O2SAT 96
--- NOTE | 2017-09-25 16:30 | PD.POD ---
Subjective Pain score: 3 Remarks Minimal right foot pain, no events, mild right rib chest pain Past Med/Surg/Social History Social History Smoking Status: Current Every Day Smoker Objective Vital Signs Vital Signs Date Time Temp Pulse Resp B/P (MAP) Pulse Ox O2 Delivery O2 Flow Rate FiO2 09/25/17 11:32 97.7 89 18 171/81 (111) 94 09/25/17 07:30 98.8 73 18 133/80 (97) 94 09/25/17 00:00 99.1 80 18 135/87 (103) 95 09/24/17 21:25 95 Room Air 09/24/17 20:25 98.5 89 20 143/78 (99) 95 09/24/17 17:58 18 09/24/17 17:55 96 21 Coded Allergies: No Known Allergies (Verified Allergy, Unknown, 09/19/17) Medications and IVs Administered Medications Medications (Trade) Dose Ordered Sig/Johnson Route PRN Reason Start Time Stop Time Status Last Admin Dose Admin Sodium Chloride (NS Flush) 2 ml BID IV FLUSH 09/19/17 21:00 09/25/17 08:55 Famotidine (Pepcid) 20 mg BID PO 09/19/17 21:00 09/25/17 08:52 Morphine Sulfate (Morphine Inj) 4 mg Q3H PRN IV PUSH Breakthrough pain 09/20/17 06:45 09/21/17 14:27 Oxycodone HCl (Roxicodone) 10 mg Q4H PRN PO Pain 6-10 09/20/17 06:45 09/25/17 15:00 Lidocaine HCl (Lidoderm 5% Patch.12 Hr) 1 patch DAILY T-DERMAL 09/20/17 09:00 09/25/17 08:53 Senna/Docusate Sodium (Wanda-Colace) 1 tab BID PO 09/20/17 09:00 09/24/17 20:07 Tiotropium [place] (Spiriva Inh) 18 mcg DAILY INH 09/20/17 11:30 09/25/17 08:55 Diazepam (Valium) 2 mg Q8H PO 09/21/17 12:00 09/25/17 13:04 Lisinopril (Prinivil) 20 mg Q12HR PO 09/21/17 14:00 09/25/17 08:54 Enoxaparin Sodium (Lovenox Inj) 40 mg Q24H SQ 09/21/17 16:00 Future hold 09/25/17 15:02 Other Results Laboratory Tests Test 09/24/17 09:26 09/25/17 09:45 Blood Smear Pathologist Review White Blood Count 5.9 TH/MM3 Red Blood Count 4.20 MIL/MM3 Hemoglobin 14.2 GM/DL Hematocrit 40.4 % Mean Corpuscular Volume 96.2 FL Mean Corpuscular Hemoglobin 33.7 PG Mean Corpuscular Hemoglobin Concent 35.0 % Red Cell Distribution Width 13.4 % Platelet Count 126 TH/MM3 Mean Platelet Volume 8.2 FL Neutrophils (%) (Auto) 63.6 % Lymphocytes (%) (Auto) 18.4 % Monocytes (%) (Auto) 15.9 % Eosinophils (%) (Auto) 1.6 % Basophils (%) (Auto) 0.5 % Neutrophils # (Auto) 3.7 TH/MM3 Lymphocytes # (Auto) 1.1 TH/MM3 Monocytes # (Auto) 0.9 TH/MM3 Eosinophils # (Auto) 0.1 TH/MM3 Basophils # (Auto) 0.0 TH/MM3 CBC Comment DIFF FINAL Differential Comment Laboratory Tests Test 09/24/17 09:26 09/25/17 09:45 Iron Level 29 MCG/DL Total Iron Binding Capacity 197 MCG/DL Percent Iron Saturation 14.7 % Ferritin 709 NG/ML Vitamin B12 Level 536 PG/ML Folate 12.5 NG/ML Blood Urea Nitrogen 10 MG/DL Creatinine 0.73 MG/DL Random Glucose 127 MG/DL Total Protein 6.6 GM/DL Albumin 2.6 GM/DL Calcium Level 8.4 MG/DL Alkaline Phosphatase 73 U/L Aspartate Amino Transf (AST/SGOT) 41 U/L Alanine Aminotransferase (ALT/SGPT) 36 U/L Total Bilirubin 1.4 MG/DL Sodium Level 131 MEQ/L Potassium Level 3.7 MEQ/L Chloride Level 96 MEQ/L Carbon Dioxide Level 28.8 MEQ/L Anion Gap 6 MEQ/L Estimat Glomerular Filtration Rate 109 ML/MIN Exam-Podiatry Remarks Right lower extremity examined good range of motion of digits, splint intact no strikethrough calf nontender nondistended toes warm. Capillary fill time. Assessment & Plan A/P 1. Right Lisfranc fracture dislocation. 2. Displaced third metatarsal. 3. Mid foot fracture dislocation second and third cuneiforms. 4. Fourth metatarsal fracture. Postop day 1. Open reduction and internal fixation Lisfranc joint. 2. Open reduction and internal fixation third metatarsal. 3. Open reduction and internal fixation cuneiform 2 and 3 with K-wire fixation. 4. Closed reduction fourth metatarsal. Right lower extremity is doing well, anticipate bandage change tomorrow, Doing well from Podiatry standpoint. Non WB right LE, Continue PT. Gerardo Castillo DPM Sep 25, 2017 16:30
[2017-09-25 17:40] VITALS: O2SAT 96
[2017-09-25 20:00] VITALS: BP 131/79; PULSE 85; RESP 18; TEMP 98.5; O2SAT 95
--- NOTE | 2017-09-25 20:15 | PD.ONC.PN ---
Subjective Subjective Remarks Resting comforably in bed. Objective Data Date Time Temp Pulse Resp B/P (MAP) Pulse Ox O2 Delivery O2 Flow Rate FiO2 09/25/17 17:40 96 21 09/25/17 16:00 97.3 82 18 148/78 (101) 96 09/25/17 11:32 97.7 89 18 171/81 (111) 94 09/25/17 07:30 98.8 73 18 133/80 (97) 94 09/25/17 00:00 99.1 80 18 135/87 (103) 95 09/24/17 21:25 95 Room Air 09/24/17 20:25 98.5 89 20 143/78 (99) 95 09/25/17 09/25/17 09/25/17 07:00 15:00 23:00 Intake Total 480 ml 960 ml Balance 480 ml 960 ml Result Diagram: 09/25/17 0945 09/25/17 0945 Laboratory Results Laboratory Tests Test 09/25/17 09:45 White Blood Count 5.9 TH/MM3 Red Blood Count 4.20 MIL/MM3 Hemoglobin 14.2 GM/DL Hematocrit 40.4 % Mean Corpuscular Volume 96.2 FL Mean Corpuscular Hemoglobin 33.7 PG Mean Corpuscular Hemoglobin Concent 35.0 % Red Cell Distribution Width 13.4 % Platelet Count 126 TH/MM3 Mean Platelet Volume 8.2 FL Neutrophils (%) (Auto) 63.6 % Lymphocytes (%) (Auto) 18.4 % Monocytes (%) (Auto) 15.9 % Eosinophils (%) (Auto) 1.6 % Basophils (%) (Auto) 0.5 % Neutrophils # (Auto) 3.7 TH/MM3 Lymphocytes # (Auto) 1.1 TH/MM3 Monocytes # (Auto) 0.9 TH/MM3 Eosinophils # (Auto) 0.1 TH/MM3 Basophils # (Auto) 0.0 TH/MM3 CBC Comment DIFF FINAL Differential Comment Blood Urea Nitrogen 10 MG/DL Creatinine 0.73 MG/DL Random Glucose 127 MG/DL Total Protein 6.6 GM/DL Albumin 2.6 GM/DL Calcium Level 8.4 MG/DL Alkaline Phosphatase 73 U/L Aspartate Amino Transf (AST/SGOT) 41 U/L Alanine Aminotransferase (ALT/SGPT) 36 U/L Total Bilirubin 1.4 MG/DL Sodium Level 131 MEQ/L Potassium Level 3.7 MEQ/L Chloride Level 96 MEQ/L Carbon Dioxide Level 28.8 MEQ/L Anion Gap 6 MEQ/L Estimat Glomerular Filtration Rate 109 ML/MIN Administered Medications Medications (Trade) Dose Ordered Sig/Johnson Route PRN Reason Start Time Stop Time Status Last Admin Dose Admin Sodium Chloride (NS Flush) 2 ml BID IV FLUSH 09/19/17 21:00 09/25/17 20:07 Famotidine (Pepcid) 20 mg BID PO 09/19/17 21:00 09/25/17 20:07 Morphine Sulfate (Morphine Inj) 4 mg Q3H PRN IV PUSH Breakthrough pain 09/20/17 06:45 09/21/17 14:27 Oxycodone HCl (Roxicodone) 10 mg Q4H PRN PO Pain 6-10 09/20/17 06:45 09/25/17 19:25 Lidocaine HCl (Lidoderm 5% Patch.12 Hr) 1 patch DAILY T-DERMAL 09/20/17 09:00 09/25/17 08:53 Senna/Docusate Sodium (Wanda-Colace) 1 tab BID PO 09/20/17 09:00 09/25/17 20:06 Tiotropium [place] (Spiriva Inh) 18 mcg DAILY INH 09/20/17 11:30 09/25/17 08:55 Diazepam (Valium) 2 mg Q8H PO 09/21/17 12:00 09/25/17 20:06 Lisinopril (Prinivil) 20 mg Q12HR PO 09/21/17 14:00 09/25/17 20:06 Enoxaparin Sodium (Lovenox Inj) 40 mg Q24H SQ 09/21/17 16:00 Future hold 09/25/17 15:02 Objective Remarks GENERAL: Well-nourished, well-developed patient. SKIN: Warm and dry. HEAD: Normocephalic. EYES: No scleral icterus. No injection or drainage. NECK: Supple, trachea midline. No JVD or lymphadenopathy. LYMPHATIC: No adenopathy. CARDIOVASCULAR: Regular rate and rhythm without murmurs. RESPIRATORY: Breath sounds equal bilaterally. No accessory muscle use. GASTROINTESTINAL: Abdomen soft, non-tender, nondistended. EXTREMITIES: No cyanosis, or edema. MUSCULOSKELETAL: Adequate muscle tone. NEUROLOGICAL: No obvious focal deficit. Awake, alert, and oriented x3. PSYCHIATRIC: Appropriate mood and affect; insight and judgment normal. Assessment/Plan Assessment 1. Metastatic clear cell renal carcinoma. Discussed treatment with patient at bedside including initiation of pazopanib/sunitinib in the outpatient setting. Patient expressed understanding. Upon discharge he will follow up closely in oncology clinic. 2. Spinal metastatic disease: he has been seen by Dr. Alegria and plan to initiate radiation therapy. 3. Thrombocytopenia in a patient with a history of alcohol abuse and findings suggestive of cirrhosis. B12, folate replete. Giselle Yoon MD Sep 25, 2017 20:15
[2017-09-26] VITALS: BP 133/79; PULSE 72; RESP 18; TEMP 98.4; O2SAT 95
[2017-09-26] MEDS: DIAZEPAM 2 MG TAB PO SCH ×3 (03:13→20:46)
[2017-09-26 08:00] VITALS: BP 148/72; PULSE 73; RESP 18; TEMP 98; O2SAT 96
[2017-09-26] MEDS: DOCUSATE SODIUM 50 MG/SENNA 8.6 MG TAB PO SCH ×2 (08:48→20:47)
[2017-09-26] MEDS: LIDOCAINE HCL 5% PATCH T-DERMAL SCH (08:48)
[2017-09-26] MEDS: POLYETHYLENE GLYCOL 17 GM PKG PO SCH (08:48)
[2017-09-26] MEDS: SODIUM CHLORIDE 0.9% FLUSH 10 ML FLUSH IV FLUSH SCH ×2 (08:48→21:11)
[2017-09-26] MEDS: FAMOTIDINE 20 MG TAB PO SCH ×2 (08:49→20:46)
[2017-09-26] MEDS: LISINOPRIL 20 MG TAB PO SCH ×2 (08:50→20:47)
[2017-09-26] MEDS: TIOTROPIUM BROMIDE 18 MCG INH INH SCH (08:51)
--- NOTE | 2017-09-26 10:32 | PD.POD ---
Subjective Pain score: 3 Remarks Minimal right foot pain, no events, mild right rib chest pain Past Med/Surg/Social History Social History Smoking Status: Current Every Day Smoker Objective Vital Signs Vital Signs Date Time Temp Pulse Resp B/P (MAP) Pulse Ox O2 Delivery O2 Flow Rate FiO2 09/26/17 08:00 98.0 73 18 148/72 (97) 96 09/26/17 00:00 98.4 72 18 133/79 (97) 95 09/25/17 20:00 98.5 85 18 131/79 (96) 95 09/25/17 17:40 96 21 09/25/17 16:00 97.3 82 18 148/78 (101) 96 09/25/17 11:32 97.7 89 18 171/81 (111) 94 Coded Allergies: No Known Allergies (Verified Allergy, Unknown, 09/19/17) Physical Exam Remarks Right foot ankle : Moderate strikethrough on inner bandage, the dorsal incision medial incision and 3 pins intact, and decreased edema no ischemic changes, no signs of infection. Stable digits midfoot distress instability no heel abrasions noted calf nontender nondistended Assessment & Plan A/P 1. Right Lisfranc fracture dislocation. 2. Displaced third metatarsal. 3. Mid foot fracture dislocation second and third cuneiforms. 4. Fourth metatarsal fracture. Postop day 1. Open reduction and internal fixation Lisfranc joint. 2. Open reduction and internal fixation third metatarsal. 3. Open reduction and internal fixation cuneiform 2 and 3 with K-wire fixation. 4. Closed reduction fourth metatarsal. Bandages changed Betadine applied to wounds new splint ordered due to strikethrough. Cleared to discharge per podiatry nonweightbearing follow-up 1 week. No bandage change needed Gerardo Castillo DPM Sep 26, 2017 10:32
[2017-09-26 12:00] VITALS: BP 114/75; PULSE 78; RESP 16; TEMP 98; O2SAT 95
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
[2017-09-26] MEDS: ENOXAPARIN SODIUM 40 MG/0.4 ML SYRINGE SQ SCH (15:01)
[2017-09-26 20:00] VITALS: BP 131/84; PULSE 72; RESP 21; TEMP 99.1; O2SAT 99
[2017-09-27] VITALS: BP 129/80; PULSE 72; RESP 20; TEMP 98.5; O2SAT 97
[2017-09-27] MEDS: DIAZEPAM 2 MG TAB PO SCH ×3 (03:43→21:06)
[2017-09-27] MEDS: LISINOPRIL 20 MG TAB PO SCH ×2 (07:55→21:06)
[2017-09-27] MEDS: FAMOTIDINE 20 MG TAB PO SCH ×2 (07:55→21:06)
[2017-09-27] MEDS: LIDOCAINE HCL 5% PATCH T-DERMAL SCH (07:56)
[2017-09-27] MEDS: DOCUSATE SODIUM 50 MG/SENNA 8.6 MG TAB PO SCH ×2 (07:56→21:06)
[2017-09-27] MEDS: POLYETHYLENE GLYCOL 17 GM PKG PO SCH (07:57)
[2017-09-27 08:00] VITALS: BP 127/73; PULSE 67; RESP 18; TEMP 98.3; O2SAT 96
[2017-09-27] MEDS: SODIUM CHLORIDE 0.9% FLUSH 10 ML FLUSH IV FLUSH SCH ×2 (08:00→21:07)
[2017-09-27 11:42] VITALS: O2SAT 93
[2017-09-27 12:00] VITALS: BP 123/70; PULSE 77; RESP 18; TEMP 98; O2SAT 99
[2017-09-27] MEDS: TIOTROPIUM BROMIDE 18 MCG INH INH SCH (12:30)
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
[2017-09-27] MEDS: ENOXAPARIN SODIUM 40 MG/0.4 ML SYRINGE SQ SCH (15:49)
[2017-09-27 16:00] VITALS: BP 120/71; PULSE 75; RESP 18; TEMP 98.5; O2SAT 95
[2017-09-27 20:13] VITALS: BP 138/73; PULSE 74; RESP 18; TEMP 98.2; O2SAT 96
[2017-09-28 00:33] VITALS: BP 130/78; PULSE 70; RESP 18; TEMP 98; O2SAT 97
[2017-09-28] MEDS: DIAZEPAM 2 MG TAB PO SCH ×2 (02:52→11:49)
[2017-09-28] MEDS: FAMOTIDINE 20 MG TAB PO SCH (07:54)
[2017-09-28] MEDS: LIDOCAINE HCL 5% PATCH T-DERMAL SCH (07:55)
[2017-09-28] MEDS: LISINOPRIL 20 MG TAB PO SCH (07:55)
[2017-09-28] MEDS: TIOTROPIUM BROMIDE 18 MCG INH INH SCH (07:56)
[2017-09-28] MEDS: SODIUM CHLORIDE 0.9% FLUSH 10 ML FLUSH IV FLUSH SCH (07:56)
[2017-09-28] MEDS: DOCUSATE SODIUM 50 MG/SENNA 8.6 MG TAB PO SCH (07:57)
[2017-09-28] MEDS: POLYETHYLENE GLYCOL 17 GM PKG PO SCH (07:57)
[2017-09-28 08:00] VITALS: BP 114/70; PULSE 70; RESP 18; TEMP 97.1; O2SAT 97
[2017-09-28 12:00] VITALS: BP 120/65; PULSE 62; RESP 18; TEMP 98; O2SAT 97
[2017-09-28] MEDS ORDERED: DIAZ2 PO (14:18)
[2017-09-28] MEDS ORDERED: SPIRCAP INH (14:18)
[2017-09-28] MEDS ORDERED: LISI-515 PO (14:18)
[2017-09-28] MEDS ORDERED: OXYC-395 PO (14:18)
[2017-09-28] MEDS ORDERED: WALKER WHEELS/F1 MIS (14:22)
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
[2017-09-28 16:00] VITALS: BP 123/75; PULSE 73; RESP 18; TEMP 98.5; O2SAT 97
== END 2017-09-28 17:00 | disposition home or self-care (01) | DRG 478 ==
LOC: NEPI 17:47 → NEDA 19:09 → EDBD 19:09 → N06B 22:01
PROVIDERS: ADMIT Family Medicine; ATTEND Family Medicine
PROC: 0CQ1XZZ Repair Lower Lip, External Approach (ICD-10-PCS; 2017-09-19)
PROC: 0QSN04Z Reposition Right Metatarsal with Internal Fixation Device, Open Approach (ICD-10-PCS; 2017-09-22)
PROC: 0QSL04Z Reposition Right Tarsal with Internal Fixation Device, Open Approach (ICD-10-PCS; 2017-09-22)
PROC: 0QSNXZZ Reposition Right Metatarsal, External Approach (ICD-10-PCS; 2017-09-22)
PROC: 0QSL04Z Reposition Right Tarsal with Internal Fixation Device, Open Approach (ICD-10-PCS; principal; 2017-09-22 13:55)
PROC: 0PB43ZX Excision of Thoracic Vertebra, Percutaneous Approach, Diagnostic (ICD-10-PCS; 2017-09-23)
DX: S92.241A Displaced fracture of medial cuneiform of right foot, initial encounter for closed fracture (principal); S22.41XA Multiple fractures of ribs, right side, initial encounter for closed fracture; J90 Pleural effusion, not elsewhere classified; C79.51 Secondary malignant neoplasm of bone; S27.321A Contusion of lung, unilateral, initial encounter; C64.9 Malignant neoplasm of unspecified kidney, except renal pelvis; S02.40CA Maxillary fracture, right side, initial encounter for closed fracture; J98.11 Atelectasis; D69.6 Thrombocytopenia, unspecified; M48.04 Spinal stenosis, thoracic region; S92.341A Displaced fracture of fourth metatarsal bone, right foot, initial encounter for closed fracture; S92.351A Displaced fracture of fifth metatarsal bone, right foot, initial encounter for closed fracture; K74.60 Unspecified cirrhosis of liver; Y90.8 Blood alcohol level of 240 mg/100 ml or more; F17.210 Nicotine dependence, cigarettes, uncomplicated; I10 Essential (primary) hypertension; S01.511A Laceration without foreign body of lip, initial encounter; F10.129 Alcohol abuse with intoxication, unspecified; V47.5XXA Car driver injured in collision with fixed or stationary object in traffic accident, initial encounter; Y92.410 Unspecified street and highway as the place of occurrence of the external cause
CPT/HCPCS: 12051; 20225; 70450; 70486; 71045; 71260; 72125; 72157; 72170; 73630; 73700; 74177; 76000; 77012; 78306; 80048; 80053; 80307; 82607; 82728; 82746; 83540; 83550; 85025; 85610; 85730; 86850; 86900; 86901; 88307; 88311; 88341; 88342; 90471; 90715; 93005; 94150; 94640; 94664; 94667; 94668; 96374; 96375; 99152; 99153; 99291; A9503; A9579; C1713; G0390; J0131; J0690; J1100; J1580; J1650; J2250; J2270; J2370; J2405; J3010; J3411; J7030; J7040; J7613; Q9967